=== PATIENT | male | born 2000 | race Caucasian/White ===

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

== ENCOUNTER 2022-02-08 18:57 | Emergency (ER) | payer OTHER ==
[2022-02-08 19:15] VITALS: TEMP 99.8
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
[2022-02-08] MEDS ORDERED: AMOXIC-POT CLAV 875-125MG 1 EACH TAB PO STA (20:13)
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
[2022-02-08 21:29] VITALS: BP 132/76; PULSE 78; RESP 16
== END 2022-02-08 21:28 | disposition home or self-care (01) ==
LOC: EC 18:57
DX: S06.0X0A Concussion without loss of consciousness, initial encounter (principal); H57.89 Other specified disorders of eye and adnexa; Y04.8XXA Assault by other bodily force, initial encounter
CPT/HCPCS: 70450; 70486; 72125; 99284

== ENCOUNTER 2023-02-11 16:00 | Emergency (ER) | payer OTHER ==
[2023-02-11 16:11] VITALS: TEMP 98
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
[2023-02-11] MEDS ORDERED: IBUPROFEN 800 MG TAB PO STA (16:57)
[2023-02-11 17:15] VITALS: BP 120/78; PULSE 70; RESP 18
== END 2023-02-11 17:14 | disposition home or self-care (01) ==
LOC: EC 16:00
DX: S62.316A Displaced fracture of base of fifth metacarpal bone, right hand, initial encounter for closed fracture (principal); F17.290 Nicotine dependence, other tobacco product, uncomplicated; Z86.59 Personal history of other mental and behavioral disorders; W22.09XA Striking against other stationary object, initial encounter
CPT/HCPCS: 29125; 99283

== ENCOUNTER 2023-04-23 03:40 | Observation (INO) | payer OTHER ==
[2023-04-23] MEDS ORDERED: MORPHINE SULFATE 4 MG/ML SYRINGE IV STA (03:48)
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
[2023-04-23 04:14] LABS: Basophils # (A) 0.1 k/uL (0-0.2); Basophils % (A) 1 %; Eosinophils # (A) 0.1 k/uL (0-0.7); Eosinophils % (A) 2 %; HCT 48.1 % (39.0-53.0); HGB 16.4 gm/dL (13.0-17.5); Lymphocytes # (A) 3.5 k/uL (1.0-4.8); Lymphocytes % (A) 43 %; MCH 29.3 pg (25.0-35.0); MCV 86.2 fL (80.0-100.0); Mean Platelet Volume 7.3; Monocytes # (A) 0.5 k/uL (0-1.0); Monocytes % (A) 6 %; Neutrophils # (A) 3.6 k/uL (1.3-7.7); Neutrophils % (A) 45 %; Platelet Count 243 k/uL (150-450); RBC 5.58 m/uL (4.30-5.90)
[2023-04-23] MEDS ORDERED: DIPH,PERTUS(ACELL)TETVAC-LF 0.5 ML VIAL IM ONE (04:15)
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
[2023-04-23 04:25] LABS: Partial Thromboplastin Time 23.4 sec (22.0-30.0); Prothrombin Time 10.7 sec (10.0-12.5)
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
[2023-04-23 04:27] LABS: ALT 28 U/L (4-49); AST 27 U/L (17-59); African American GFR (CKD) >90 (>60 ml/min/1.73 sqM); Albumin 4.8 g/dL (3.5-5.0); Alcohol 44 mg/dL; Alkaline Phosphatase 65 U/L (38-126); Anion Gap 16 mmol/L; Blood Urea Nitrogen 7 mg/dL (9-20); Carbon Dioxide 23 mmol/L (22-30); Chloride 102 mmol/L (98-107); Glucose 107 mg/dL (74-99); Non-African American GFR(CKD) >90 (>60 ml/min/1.73 sqM); Potassium 3.5 mmol/L (3.5-5.1); Sodium 141 mmol/L (137-145); Total Bilirubin 0.7 mg/dL (0.2-1.3); Total Protein 8.1 g/dL (6.3-8.2)
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
[2023-04-23] MEDS ORDERED: ACETAMINOPHEN TAB 325 MG TAB PO PRN (05:46)
[2023-04-23] MEDS ORDERED: NALOXONE 0.4 MG/ML 1 ML VIAL IV PRN (05:46)
[2023-04-23] MEDS ORDERED: ONDANSETRON 4 MG/2 ML VIAL IVP PRN (05:46)
[2023-04-23] MEDS: SODIUM CHLORIDE 0.9% 1,000 ML IV SCH ×3 (06:14→23:32)
[2023-04-23 07:21] LABS: Amphetamine Screen,Urine Not Detected (NotDetected); Benzodiazepines Screen,Urine Not Detected (NotDetected); Cocaine Screen,Urine Not Detected (NotDetected); Methadone Screen, Urine Not Detected (NotDetected); Opiate Screen,Urine Detected (NotDetected); Phencyclidine Screen,Urine Not Detected (NotDetected); Tricyclic Antidepressant,Urine Not Detected (NotDetected); Urn Cannabinoid Scrn Detected (NotDetected)
[2023-04-23 07:22] LABS: Barbiturate Screen,Urine Not Detected (NotDetected); Oxycodone Screen, Urine Not Detected (NotDetected)
--- NOTE | 2023-04-23 07:40 | XR ---
EXAMINATION TYPE: XR hand complete RT DATE OF EXAM: 04/23/2023 7:30 AM INDICATION: Patient age:Male; 22 years old; Reason for study: injury; [facility]. COMPARISON: Right hand radiograph 02/11/2023 TECHNIQUE: Frontal, lateral and oblique views of the right hand were obtained. FINDINGS: Healing distal fifth metacarpal boxer fracture with callus formation. Fracture line is demonstrated. There is again palmar angulation at the fracture site with mild soft tissue swelling. No dislocation. No additional fracture. IMPRESSION: Acute on chronic distal fifth metacarpal fracture.
[2023-04-23] MEDS: HYDROcodone/APAP 5-325MG 1 EACH TAB PO PRN ×4 (08:13→22:46)
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
--- NOTE | 2023-04-23 10:16 | XR ---
EXAMINATION TYPE: XR chest w ap lordotic DATE OF EXAM: 04/23/2023 10:00 AM CLINICAL INDICATION:Male, 22 years old with history of Progress of pneumothorax; [facility] COMPARISON: Chest radiographs from 04/23/2023 TECHNIQUE: XR chest w ap lordotic Frontal view of the chest. FINDINGS: Lungs/Pleura: Bibasilar atelectasis. No evidence for pneumothorax, pleural effusion or focal consolid ation. Pulmonary vascularity: Unremarkable. Heart/mediastinum: Cardiomediastinal silhouette is unremarkable. Musculoskeletal: No acute osseous pathology. IMPRESSION: There is no pneumothorax definitely visualized. No pneumothorax definitively visualized on immediate prior film either. Consider confirmation with CT or expiratory chest radiograph. The lung bases have basilar atelectasis present.
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
--- NOTE | 2023-04-24 06:43 | XR ---
EXAMINATION TYPE: XR chest 2V DATE OF EXAM: 04/24/2023 6:26 AM COMPARISON: Chest radiographs from 04/23/2023, CTA chest 04/23/2023 TECHNIQUE: XR chest 2V Frontal and lateral views of the chest. CLINICAL INDICATION:Male, 22 years old with history of pneumothorax; FINDINGS: Lungs/Pleura: There is no evidence of pleural effusion or focal consolidation. Bibasilar subsegmental atelectasis demonstrated. Trace right apical pneumothorax. Pulmonary vascularity: Unremarkable. Heart/mediastinum: Cardiomediastinal silhouette is unremarkable. Musculoskeletal: No acute osseous pathology. IMPRESSION: Bibasal subsegmental atelectasis with trace right apical pneumothorax.
[2023-04-24 07:05] LABS: Basophils % (A) 0 %; Eosinophils # (A) 0.1 k/uL (0-0.7); Eosinophils % (A) 1 %; HCT 41.4 % (39.0-53.0); HGB 14.4 gm/dL (13.0-17.5); Lymphocytes # (A) 2.5 k/uL (1.0-4.8); Lymphocytes % (A) 29 %; MCH 30.2 pg (25.0-35.0); MCHC 34.7 g/dL (31.0-37.0); MCV 87.2 fL (80.0-100.0); Monocytes # (A) 0.7 k/uL (0-1.0); Monocytes % (A) 8 %; Neutrophils # (A) 5.3 k/uL (1.3-7.7); Neutrophils % (A) 61 %; Platelet Count 226 k/uL (150-450); RBC 4.75 m/uL (4.30-5.90); RDW 13.1 % (11.5-15.5); WBC 8.8 k/uL (4.0-11.0)
[2023-04-24] MEDS: SODIUM CHLORIDE 0.9% 1,000 ML IV SCH ×2 (07:13→11:15)
[2023-04-24 07:22] LABS: African American GFR (CKD) >90 (>60 ml/min/1.73 sqM); Anion Gap 11 mmol/L; Blood Urea Nitrogen 10 mg/dL (9-20); Calcium 9.6 mg/dL (8.4-10.2); Carbon Dioxide 27 mmol/L (22-30); Chloride 101 mmol/L (98-107); Glucose 92 mg/dL (74-99); Non-African American GFR(CKD) >90 (>60 ml/min/1.73 sqM); Potassium 4.3 mmol/L (3.5-5.1); Sodium 139 mmol/L (137-145)
[2023-04-24 08:18] VITALS: RESP 16; TEMP 98.1
[2023-04-24] MEDS: HYDROcodone/APAP 5-325MG 1 EACH TAB PO PRN (08:46)
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
[2023-04-24 11:45] VITALS: BP 129/74; PULSE 64
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
== END 2023-04-24 15:04 | disposition home or self-care (01) ==
LOC: EC 03:40 → 3SCARD 05:52 → INTOOBSV 05:52 → 3SCARD 07:56 → UNDODISIN 04-24 15:04
PROVIDERS: ADMIT Surgery Plastic and Reconstructive Surgery; ATTEND Surgery Plastic and Reconstructive Surgery
DX: S21.111A Laceration without foreign body of right front wall of thorax without penetration into thoracic cavity, initial encounter (principal); S27.0XXA Traumatic pneumothorax, initial encounter; T79.7XXA Traumatic subcutaneous emphysema, initial encounter; S62.306A Unspecified fracture of fifth metacarpal bone, right hand, initial encounter for closed fracture; X99.9XXA Assault by unspecified sharp object, initial encounter; F10.229 Alcohol dependence with intoxication, unspecified; Y90.2 Blood alcohol level of 40-59 mg/100 ml; R79.89 Other specified abnormal findings of blood chemistry; F12.90 Cannabis use, unspecified, uncomplicated; F17.290 Nicotine dependence, other tobacco product, uncomplicated; F20.9 Schizophrenia, unspecified; F31.9 Bipolar disorder, unspecified; Z79.899 Other long term (current) drug therapy; Z23 Encounter for immunization
CPT/HCPCS: 12002; 90471; 96365; 96375; 99285; 36415; 94760; 93005; 86900; 86901; 80053; 80048; 83605; 84484; 85025 ×2; 85610; 85730; 86850; 80306; 73130; 71045; 71046; 71047; 71275; 74177; 90715; G0378 ×2; G0480; J2270; J0690; Q9967; 80320; 96361

== ENCOUNTER 2023-06-18 15:52 | Emergency (ER) | payer OTHER ==
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
[2023-06-18 16:31] VITALS: BP 122/74; PULSE 82; RESP 18; TEMP 98.2
== END 2023-06-18 18:47 | disposition left against medical advice (07) ==
LOC: EC 15:52
DX: J02.9 Acute pharyngitis, unspecified (principal); F17.290 Nicotine dependence, other tobacco product, uncomplicated; Z86.59 Personal history of other mental and behavioral disorders; Z20.822 Contact with and (suspected) exposure to COVID-19; Z53.29 Procedure and treatment not carried out because of patient's decision for other reasons
CPT/HCPCS: 87635; 99283

== ENCOUNTER 2023-08-02 23:26 | Emergency (ER) | payer OTHER ==
[2023-08-02 23:40] VITALS: BP 135/82; PULSE 97; RESP 18; TEMP 97.6
--- NOTE | 2023-08-03 00:28 | XR ---
EXAMINATION TYPE: XR chest 2V DATE OF EXAM: 08/03/2023 COMPARISON: Chest x-ray April 24, 2023 HISTORY: Chest pain TECHNIQUE: Frontal and lateral views of the chest are obtained. FINDINGS: There is no focal air space opacity, pleural effusion, or pneumothorax seen. The cardiac silhouette size is stable and within normal limits. The osseous structures are intact. IMPRESSION: No acute cardiopulmonary process currently.
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
== END 2023-08-03 01:08 | disposition home or self-care (01) ==
LOC: EC 23:26
DX: F17.210 Nicotine dependence, cigarettes, uncomplicated (principal); F12.90 Cannabis use, unspecified, uncomplicated; F17.290 Nicotine dependence, other tobacco product, uncomplicated; F31.9 Bipolar disorder, unspecified; F20.9 Schizophrenia, unspecified; Z79.899 Other long term (current) drug therapy
CPT/HCPCS: 71046; 99284; 99406